=== PATIENT | female | born 1985 | race Two or more races ===

== ENCOUNTER 2017-01-25 02:57 | Observation (INO) | payer SELFPAY ==
[2017-01-25] MEDS ORDERED: NORMAL SALINE 1000 ML 1,000 ML IV ONE ×2 (03:26→22:15)
[2017-01-25] MEDS ORDERED: MAG HYDROX/AL HYDROX/SIMETH SUSP 30 ML UDCUP PO ONE (03:27)
[2017-01-25] MEDS ORDERED: LIDOCAINE 2% VISCOUS SOLN 20 ML UDCUP PO ONE (03:27)
[2017-01-25] MEDS ORDERED: METOCLOPRAMIDE HCL ORAL SOLN 10 MG/10 ML UDCUP PO ONE (03:27)
--- NOTE | 2017-01-25 03:29 | ER Document Report ---
ED General - General Chief Complaint: Chest Pain Stated Complaint: PALPITATIONS Time Seen by Provider: 01/25/17 03:16 Notes: Patient is a 31-year-old female that comes emergency department for chief complaint of palpitations and chest pain. She states the pain starts towards the center of her chest and shoots upwards. Pain went down her left arm. She states she felt like her heart was racing. She states that she felt short of breath with the pain, felt nauseated with the pain, and also states that she felt like she needed to belch to help with the symptoms improved. Symptoms are worse lying down. She states that she awoke to symptoms this morning. She denies injury, vomiting, fever, cough, lower extremity swelling, recent travel or surgery. She takes no daily medications. She states that she used to get this a lot when she was , she has had this many times but today it was worse. TRAVEL OUTSIDE OF THE [place] IN LAST 30 DAYS: No - Related Data Allergies/Adverse Reactions: No Known Allergies Allergy (Verified 01/25/17 03:07) Past Medical History - General Information source: Patient - Social History Smoking Status: Never Smoker Frequency of alcohol use: None Drug Abuse: None Lives with: Family Family History: Reviewed & Not Pertinent - Medical History Medical History: Negative Renal/ Medical History: Denies: Hx Peritoneal Dialysis Surgical Hx: Negative - Immunizations Immunizations up to date: Yes Hx Diphtheria, Pertussis, Tetanus Vaccination: Yes Review of Systems - Review of Systems Constitutional: No symptoms reported EENT: No symptoms reported Cardiovascular: See HPI Respiratory: No symptoms reported Gastrointestinal: See HPI Genitourinary: No symptoms reported Female Genitourinary: No symptoms reported Musculoskeletal: No symptoms reported Skin: No symptoms reported Hematologic/Lymphatic: No symptoms reported Neurological/Psychological: No symptoms reported Physical Exam - Vital signs Vitals: Temp Pulse Resp BP Pulse Ox 97.4 F 86 20 88/56 L 100 01/25/17 03:07 01/25/17 03:07 01/25/17 03:07 01/25/17 03:07 01/25/17 03:07 Interpretation: Normal - General General appearance: Anxious In distress: None - HEENT Head: Normocephalic, Atraumatic Eyes: Normal Conjunctiva: Normal Extraocular movements intact: Yes Eyelashes: Normal Pupils: PERRL Nasal: Normal Mouth/Lips: Normal Mucous membranes: Normal Pharynx: Normal Neck: Normal - Respiratory Respiratory status: No respiratory distress Chest status: Nontender. No: Tender - Patient is not tender with palpation over the anterior chest wall but she does report minimal tenderness in the left pectoral region with moving of the left arm Breath sounds: Normal. No: Decreased air movement, Wheezing Chest palpation: Normal - Cardiovascular Rhythm: Regular Heart sounds: Normal auscultation Murmur: No - Abdominal Inspection: Normal Distension: No distension Bowel sounds: Normal Tenderness: Nontender. No: Carballo's sign, Guarding Organomegaly: No organomegaly - Back Back: Normal, Nontender - Extremities General upper extremity: Normal inspection, Nontender, Normal color, Normal ROM , Normal temperature General lower extremity: Normal inspection, Nontender, Normal color, Normal ROM , Normal temperature, Normal weight bearing. No: Sylvia's sign - Neurological Neuro grossly intact: Yes Cognition: Normal Orientation: AAOx4 Scar Coma Scale Eye Opening: Spontaneous [place] Coma Scale Verbal: Oriented [place] Coma Scale Motor: Obeys Commands [place] Coma Scale Total: 15 Speech: Normal Motor strength normal: LUE, RUE, LLE, RLE Sensory: Normal - Psychological Associated symptoms: Normal affect, Normal mood, Anxious - Patient is mildly nervous looking - Skin Skin Temperature: Warm Skin Moisture: Dry Skin Color: Normal Course - Re-evaluation Re-evalutation: Patient is somewhat hypotensive initially, however she is ambulating around without any difficulty, denies dizziness or lightheadedness. Initially she was complaining of some discomfort in her chest, however after GI cocktail she reports she is much improved, after aspirin she states her symptoms resolved. EKG shows sinus rhythm with no T-wave inversions in consecutive leads or ST segment changes. WI interval is normal. Chest x-ray is unremarkable. Troponin was cycled because of patient's symptoms of pain, radiation, nausea with pain, and reported rapid heart rate, this was actually elevated at 0.048. Mildly low glucose, chemistry and CBC unremarkable otherwise. HCG is negative. Patient denies any drug use or supplements. Suspect possible arrhythmia as the cause, no evidence of pericarditis, low suspicion of endocarditis, no shortness of breath or current symptoms suggesting a pulmonary embolism. She also does not smoke, does not take contraceptives, denies recent travel or surgery, has no lower extremity swelling. No family history of early cardiac disease or pulmonary embolism. Discussed with Dr. Sun. Recommend admission to telemetry for additional evaluation for suspected arrhythmia with elevated troponin. 01/25/17 07:[address] Benjamin, recommends I speak to Cardiology. Discussed with Dr. Gray, discussed HPI, symptoms, exam, workup. He recommends admission, enzymes, echo, stress. Discussed with Dr. Benjamin again. Patient to be admitted to Telemetry obs. Patient remains smiling and well appearing, states agreement with plan. - Vital Signs Vital signs: Temp Pulse Resp BP Pulse Ox 97.4 F 86 29 H 98/86 H 100 01/25/17 03:07 01/25/17 03:07 01/25/17 04:30 01/25/17 04:30 01/25/17 04:30 - Laboratory Result Diagrams: 01/25/17 04:25 01/25/17 04:25 Laboratory results interpreted by me: 01/25/17 04:25 Chloride 109 H Glucose 74 L Direct Bilirubin 0.5 H Alkaline Phosphatase 34 L Total Protein 6.2 L Discharge - Discharge Clinical Impression: Palpitations Chest pain Qualifiers: Chest pain type: unspecified Qualified Code(s): R07.9 - Chest pain, unspecified Condition: Stable Disposition: ADMITTED OBSERVATION Admitting Provider: Hospitalist Unit Admitted: Telemetry
[2017-01-25 05:09] LABS: ABSOLUTE EOSINOPHILS # (AUTO) 0.3 10^3/uL (0.0-0.6); ABSOLUTE LYMPHOCYTES (AUTO) 2.2 10^3/uL (0.5-4.7); ABSOLUTE MONOCYTES (AUTO) 0.5 10^3/uL (0.1-1.4); BASOPHILS % (AUTO) 0.4 % (0-2); EOSINOPHILS % (AUTO) 3.5 % (0-6); HEMOGLOBIN 13.8 g/dL (12.0-15.5); HGB HCT DIFFERENCE 0.4; LYMPHOCYTES % (AUTO) 27.3 % (13-45); MEAN CORPUSCULAR HEMOGLOBIN 30.6 pg (27.0-33.4); MEAN CORPUSCULAR HGB CONC 33.7 g/dL (32.0-36.0); MEAN CORPUSCULAR VOLUME 91 fl (80-97); RED BLOOD COUNT 4.52 10^6/uL (3.72-5.28); RED CELL DISTRIBUTION WIDTH 12.8 % (11.5-14.0); SEGMENTED NEUTROPHILS % (AUTO) 62.8 % (42-78); WHITE BLOOD COUNT 7.9 10^3/uL (4.0-10.5)
--- NOTE | 2017-01-25 05:27 | RADIOLOGY REPORT (SQ) ---
EXAM DESCRIPTION: CHEST PA/LAT COMPLETED DATE/TIME: 01/25/2017 5:10 am REASON FOR STUDY: chest pain COMPARISON: None. EXAM PARAMETERS: NUMBER OF VIEWS: two views TECHNIQUE: Digital Frontal and Lateral radiographic views of the chest acquired. RADIATION DOSE: NA LIMITATIONS: none FINDINGS: LUNGS AND PLEURA: No consolidation, pneumothorax or pleural effusion. MEDIASTINUM AND HILAR STRUCTURES: No masses or contour abnormalities. HEART AND VASCULAR STRUCTURES: Heart normal size. No evidence for failure. BONES: No acute findings. HARDWARE: None in the chest. IMPRESSION: No acute radiographic finding in the chest. TECHNICAL DOCUMENTATION: JOB ID: [id number] [employer]- All Rights Reserved
[2017-01-25 05:32] LABS: ALANINE AMINOTRANSFERASE 20 U/L (9-52); ALBUMIN 3.6 g/dL (3.5-5.0); ALKALINE PHOSPHATASE 34 U/L (38-126); ANION GAP 11 (5-19); ASPARTATE AMINO TRANSFERASE 21 U/L (14-36); BILIRUBIN,DIRECT 0.5 mg/dL (0.0-0.4); BILIRUBIN,TOTAL 0.8 mg/dL (0.2-1.3); BLOOD UREA NITROGEN 18 mg/dL (7-20); CALCIUM 9.3 mg/dL (8.4-10.2); CARBON DIOXIDE 22 mmol/L (22-30); CHLORIDE 109 mmol/L (98-107); CREATININE RESULT 0.72 mg/dL (0.52-1.25); GLUCOSE 74 mg/dL (75-110); LIPASE 137.4 U/L (23-300); POTASSIUM 3.6 mmol/L (3.6-5.0); SODIUM 142.1 mmol/L (137-145); TOTAL PROTEIN 6.2 g/dL (6.3-8.2)
[2017-01-25] MEDS ORDERED: ASPIRIN 81 MG TABLET, CHEWABLE PO ONE (05:55)
[2017-01-25] MEDS ORDERED: ASPIRIN 81 MG TABLET, CHEWABLE ONE (05:58)
[2017-01-25 07:32] LABS: URINE BARBITURATES SCREEN NEGATIVE; URINE METHADONE SCREEN NEGATIVE; URINE OPIATES LOW NEGATIVE; URINE PHENCYCLIDINE SCREEN NEGATIVE
--- NOTE | 2017-01-25 07:49 | EKG REPORT ---
SEVERITY:- NORMAL ECG - SINUS RHYTHM : Confirmed by: Ernesto Randhawa MD 25-Jan-2017 07:48:35
[2017-01-25] MEDS ORDERED: ONDANSETRON HCL INJ/PF 4 MG/2 ML SDV IV PRN (08:37)
[2017-01-25] MEDS ORDERED: ACETAMINOPHEN 325 MG TABLET PO PRN (08:37)
--- NOTE | 2017-01-25 08:56 | PDOC H&P ---
History of Present Illness Admission Date/PCP: 01/25/17 Patient complains of: CP, palpitation History of Present Illness: YUN GALICIA is a 31 year old female, w/ history of palpitation for years since she was 19y.o w/o any work-up presents to hospital due to sustained palpitation, w/ associated CP radiating to L shoulder, dizziness, sweats, SOB and nausea but no vomiting. There was a question of Vtach or SVT by ED but no rhythym strip available for review. Cardiology consulted and recommended stress test and echo. She was then refered for admission. No hx of cardiach problems nor family hx of cardiac disease. Past Medical History Cardiac Medical History: Reports: Other - palpitation Past Surgical History Past Surgical History: Reports: None Social History Information Source: Patient Lives with: Family Smoking Status: Never Smoker Frequency of Alcohol Use: None Hx Recreational Drug Use: No Drugs: None Family History Family History: Thyroid Disfunction Parental Family History Reviewed: Yes Children Family History Reviewed: Yes Sibling(s) Family History Reviewed.: Yes Medication/Allergy Allergies/Adverse Reactions: No Known Allergies Allergy (Verified 01/25/17 03:07) Review of Systems Constitutional: ABSENT: chills, fever(s), headache(s), weight gain, weight loss Eyes: ABSENT: visual disturbances Ears: ABSENT: hearing changes Nose, Mouth, and Throat: ABSENT: mouth pain, sore throat Cardiovascular: PRESENT: chest pain, palpitations. ABSENT: dyspnea on exertion , edema, orthropnea Respiratory: PRESENT: dyspnea. ABSENT: cough, hemoptysis, sputum Gastrointestinal: PRESENT: bloating, nausea. ABSENT: abdominal pain, constipation, diarrhea, hematemesis, hematochezia, melena, vomiting Genitourinary: ABSENT: difficulty urinating, dysuria, hematuria Musculoskeletal: ABSENT: joint swelling Integumentary: ABSENT: pruritus, rash, wounds Neurological: PRESENT: dizziness. ABSENT: abnormal gait, abnormal speech, confusion, focal weakness, syncope Psychiatric: ABSENT: anxiety, depression, homidical ideation, suicidal ideation Endocrine: ABSENT: cold intolerance, heat intolerance, polydipsia, polyuria Hematologic/Lymphatic: ABSENT: easy bleeding, easy bruising Physical Exam Vital Signs: Temp Pulse Resp BP Pulse Ox 97.4 F 86 29 H 98/86 H 100 01/25/17 03:07 01/25/17 03:07 01/25/17 04:30 01/25/17 04:30 01/25/17 04:30 Intake & Output 01/24/17 01/25/17 01/26/17 06:59 06:59 06:59 Weight 61.3 kg General appearance: PRESENT: no acute distress, cooperative, well-developed, well-nourished Head exam: PRESENT: atraumatic, normocephalic Eye exam: PRESENT: conjunctiva pink, EOMI, PERRLA. ABSENT: scleral icterus Ear exam: PRESENT: normal external ear exam Mouth exam: PRESENT: moist, neck supple, tongue midline Neck exam: ABSENT: carotid bruit, JVD, lymphadenopathy, thyromegaly Respiratory exam: PRESENT: clear to auscultation trista. ABSENT: rales, rhonchi, wheezes Cardiovascular exam: PRESENT: RRR. ABSENT: diastolic murmur, rubs, systolic murmur Pulses: PRESENT: normal dorsalis pedis pul Vascular exam: PRESENT: normal capillary refill GI/Abdominal exam: PRESENT: normal bowel sounds, soft. ABSENT: distended, guarding, mass, organolmegaly, rebound, tenderness Rectal exam: PRESENT: deferred Extremities exam: PRESENT: full ROM. ABSENT: calf tenderness, clubbing, pedal edema Neurological exam: PRESENT: alert, awake, oriented to person, oriented to place , oriented to time, oriented to situation Psychiatric exam: PRESENT: appropriate affect, normal mood. ABSENT: homicidal ideation, suicidal ideation Skin exam: PRESENT: dry, intact, warm. ABSENT: cyanosis, rash Results Laboratory Results: 01/25/17 04:25 01/25/17 04:25 01/25/17 01/25/17 01/25/17 04:04 04:04 04:04 WBC Cancelled RBC Cancelled Hgb Cancelled Hct Cancelled MCV Cancelled MCH Cancelled MCHC Cancelled RDW Cancelled Plt Count Cancelled Seg Neutrophils % Cancelled Lymphocytes % Cancelled Monocytes % Cancelled Eosinophils % Cancelled Basophils % Cancelled Absolute Neutrophils Cancelled Absolute Lymphocytes Cancelled Absolute Monocytes Cancelled Absolute Eosinophils Cancelled Absolute Basophils Cancelled Sodium Cancelled Potassium Cancelled Chloride Cancelled Carbon Dioxide Cancelled Anion Gap Cancelled BUN Cancelled Creatinine Cancelled Est GFR ( Amer) Cancelled Est GFR (Non-Af Amer) Cancelled Glucose Cancelled Calcium Cancelled Total Bilirubin Cancelled AST Cancelled ALT Cancelled Alkaline Phosphatase Cancelled Total Protein Cancelled Albumin Cancelled Lipase Cancelled TSH Serum HCG, Qual Cancelled 01/25/17 01/25/17 01/25/17 04:04 04:25 04:25 WBC 7.9 RBC 4.52 Hgb 13.8 Hct 41.0 MCV 91 MCH 30.6 MCHC 33.7 RDW 12.8 Plt Count 198 Seg Neutrophils % 62.8 Lymphocytes % 27.3 Monocytes % 6.0 Eosinophils % 3.5 Basophils % 0.4 Absolute Neutrophils 5.0 Absolute Lymphocytes 2.2 Absolute Monocytes 0.5 Absolute Eosinophils 0.3 Absolute Basophils 0.0 Sodium Potassium Chloride Carbon Dioxide Anion Gap BUN Creatinine Est GFR ( Amer) Est GFR (Non-Af Amer) Glucose Calcium Total Bilirubin AST ALT Alkaline Phosphatase Total Protein Albumin Lipase TSH Cancelled 4.67 Serum HCG, Qual 01/25/17 01/25/17 04:25 04:25 WBC RBC Hgb Hct MCV MCH MCHC RDW Plt Count Seg Neutrophils % Lymphocytes % Monocytes % Eosinophils % Basophils % Absolute Neutrophils Absolute Lymphocytes Absolute Monocytes Absolute Eosinophils Absolute Basophils Sodium 142.1 Potassium 3.6 Chloride 109 H Carbon Dioxide 22 Anion Gap 11 BUN 18 Creatinine 0.72 Est GFR ( Amer) > 60 Est GFR (Non-Af Amer) > 60 Glucose 74 L Calcium 9.3 Total Bilirubin 0.8 AST 21 ALT 20 Alkaline Phosphatase 34 L Total Protein 6.2 L Albumin 3.6 Lipase 137.4 TSH Serum HCG, Qual NEGATIVE 01/25/17 04:25 Troponin I 0.048 Impressions: Chest X-Ray 01/25/17 03:25 IMPRESSION: No acute radiographic finding in the chest. Assessment & Plan - Diagnosis (1) Chest pain Qualifiers: Chest pain type: unspecified Qualified Code(s): R07.9 - Chest pain, unspecified Is this a current diagnosis for this admission?: Yes (2) Palpitations Is this a current diagnosis for this admission?: Yes - Time Time Spent: 30 to 50 Minutes Anticipated discharge: Home Within: within 24 hours - Plan Summary Plan Summary: Serial cardiac enzymes, banking officer, Echocardiogram, stress test, cardiology consult. DVT prophylaxis w/ lovenox. Baby aspirin, and supplemental O2.
[2017-01-25 09:57] LABS: CREATINE KINASE MB 2.01 ng/mL (<4.55)
[2017-01-25 10:08] LABS: TROPONIN I 0.155 ng/mL
[2017-01-25] MEDS: ASPIRIN 81 MG TABLET, ENT COATED PO SCH (11:26)
[2017-01-25] MEDS: DOCUSATE SODIUM 100 MG CAPSULE PO SCH ×2 (11:35→18:33)
[2017-01-25] MEDS: ENOXAPARIN SODIUM INJ 40 MG/0.4 ML DISP.SYRIN SUBCUT SCH (11:35)
[2017-01-25] MEDS: NORMAL SALINE 1000 ML 1,000 ML IV PRN ×2 (11:54→21:37)
--- NOTE | 2017-01-25 13:17 | PDOC CONSULTATION ---
Consultation Consult Date: 01/25/17 Attending physician:: JACK AGUILERA Consult reason:: Chest pain and palpitations History of Present Illness Admission Date/PCP: 01/25/17 08:38 Patient complains of: Chest pain and palpitations History of Present Illness: YUN GALICIA is a 31 year old female, w/ history of palpitation for years since she was 19y.o w/o any work-up presents to hospital due to sustained palpitation, w/ associated CP radiating to L shoulder, dizziness, sweats, SOB and nausea but no vomiting. There was a question of Vtach or SVT by ED but no rhythym strip available for review. Cardiology consulted and recommended stress test and echo. She was then refered for admission. No hx of cardiach problems nor family hx of cardiac disease. This history was reviewed and supplemented. Patient apparently woke up with palpitations. There is no prior history of syncope, near syncope. Patient denied any family history of sudden cardiac or premature CAD. Patient denied any prior history of pulmonary embolism. Patient denied any excess caffeine or illicit drug abuse. Past Medical History Cardiac Medical History: Reports: Other - palpitation Past Surgical History Past Surgical History: Reports: None Social History Information Source: Patient Lives with: Family Smoking Status: Never Smoker Frequency of Alcohol Use: None Hx Recreational Drug Use: No Drugs: None - Advance Directive Resuscitation Status: Full Code Surrogate healthcare decision maker:: Patient's boyfriend is surrogate decision maker at this point. Family History Family History: Thyroid Disfunction Parental Family History Reviewed: Yes Children Family History Reviewed: Yes Sibling(s) Family History Reviewed.: Yes - Negative for premature coronary artery disease or sudden cardiac in the family amongst first degree relatives. Medication/Allergy Home Medications: No Home Medications 01/25/17 Allergies/Adverse Reactions: No Known Allergies Allergy (Verified 01/25/17 03:07) Review of Systems Review of Systems: Please see history of present illness and past medical history as wall. Constitutional: No fever or chills reported. Head : No recent chronic headaches, recent head injury. Eyes: No recent eye pain, diplopia, redness, discharge, acute visual changes. Ears: No recent chronic ear pain, acute hearing loss, ear discharge. Oral cavity: No recent ulcerations, bleeding, oral cavity discomfort. Neck: No recent acute neck pain reported. Hematologic: No recent easy bruising or bleeding or hematologic malignancy reported. Lymphatic: No recent lymphatic malignancy, chronic lymphadenopathy reported yet Cardiovascular system review: See history of present illness. Respiratory system review: No recent chronic cough, hemoptysis, blood clots in the lungs reported. Mild Shortness of breath on exertion. Palpitations as noted above Gastrointestinal system review: Negative for any recent acute or chronic abdominal pain, hematemesis, melena, recent change in bowel habits. Genitourinary system review: No recent acute or chronic hematuria, flank pain, UTI etc. reported. Skin system review: Negative for any recent abnormal bruising, no rash, no pruritus reported. Neurologic: No prior history of strokes, mini strokes, seizure disorder. Psychologic: No history of major psychosis or major depression reported. Musculoskeletal: Minor aches and pains reported. No acute joint swelling reported. Endocrine: No recent polyuria, polydipsia, recent heat or cold intolerance. Physical Exam Vital Signs: Temp Pulse Resp BP Pulse Ox 97.4 F 81 23 H 98/68 L 97 01/25/17 03:07 01/25/17 09:47 01/25/17 12:11 01/25/17 12:11 01/25/17 12:11 Exam: GENERAL: well-nourished and in no acute distress. Alert and oriented x3 HEAD: Atraumatic, normocephalic. EYES: Pupils equal round and reactive to light, extraocular movements intact, sclera anicteric, conjunctiva are normal. ENT: TMs normal, nares patent, oropharynx clear without exudates. Moist mucous membranes. No oral ulcerations or bleeding gums noted NECK: supple without lymphadenopathy. Trachea is central. No cervical or axillary lymphadenopathy noted. Carotids are 2+, JVD WNL LUNGS: Respiration seems nonlabored, no significant accessory muscle action noted. Breath sounds clear to auscultation bilaterally and equal noted. No wheezes rales or rhonchi noted. No significant dullness noted on percussion. CHEST: Palpation of the chest wall shows no significant chest wall tenderness. No other significant abnormalities noted. 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 ABDOMEN: Soft, no significant tenderness appreciated, normoactive bowel sounds. No guarding, no rebound. No rigidity noted . No masses appreciated. EXTREMITIES: Pedal pulses are 1-2+, no calf tenderness noted. No clubbing or cyanosis. Negative pedal edema noted NEUROLOGICAL: Focused neurological exam showed no significant neurologic deficit. Normal speech, no focal weakness appreciated. PSYCH: Normal mood, normal affect. Judgment and insight within normal limits. SKIN: No significant ecchymosis, rash, ulcerations or signs of pruritus noted. MUSCULOSKELETAL EXAM: No significant joint swelling noted. Results Laboratory Results: 01/25/17 01/25/17 08:57 08:57 Creatine Kinase 76 CK-MB (CK-2) 2.01 Troponin I 0.155 EKG Comments: Sinus rhythm, no acute ST-T wave changes noted Impressions: Chest X-Ray 01/25/17 03:25 IMPRESSION: No acute radiographic finding in the chest. Assessment & Plan - Diagnosis (1) Elevated troponin I level Is this a current diagnosis for this admission?: Yes (2) Chest pain Qualifiers: Chest pain type: unspecified Qualified Code(s): R07.9 - Chest pain, unspecified Is this a current diagnosis for this admission?: Yes (3) Palpitations Is this a current diagnosis for this admission?: Yes - Notes Notes: Troponin I elevation: Most likely brought on by severe palpitations. Feel that patient would benefit from admission, 2D echo cardiogram and nuclear stress test. Will empirically start patient on beta-aranza therapy. Chest pain: Patient will benefit from a stress test. This will be scheduled. Palpitations: Patient would benefit from event monitoring as an outpatient. Currently will start patient on beta-aranza therapy. Will recommend CTA of the chest, to rule out pulmonary embolism. Also may look at coronary artery origins. Will also recommend lipid panel. - Time Time Spent: 30 to 50 Minutes - CODE STATUS was discussed, patient remains full code. Surrogate decision-maker unchanged. Multiple medical problems were addressed. More than 50% of the time spent coordinating care, discussing management plans with involved caregivers. Management plans discussed with involved personnels. Medical decision making was of moderate to high complexity , patient's has multiple comorbidities. Medications reviewed and adjusted accordingly: Yes
[2017-01-25 15:28] LABS: CREATINE KINASE MB 1.91 ng/mL (<4.55); TROPONIN I 0.105 ng/mL
[2017-01-25] MEDS ORDERED: ALPRAZOLAM 0.25 MG TABLET PO PRN (16:49)
[2017-01-25] MEDS: METOPROLOL SUCCINATE 25 MG TAB.SR.24H PO SCH (18:32)
--- NOTE | 2017-01-25 18:45 | EKG REPORT ---
SEVERITY:- NORMAL ECG - SINUS RHYTHM : Confirmed by: Ernesto Randhawa MD 25-Jan-2017 18:45:11
--- NOTE | 2017-01-25 19:51 | RADIOLOGY REPORT (SQ) ---
EXAM DESCRIPTION: CTA CHEST COMPLETED DATE/TIME: 01/25/2017 7:36 pm REASON FOR STUDY: Chest Pain COMPARISON: Chest x-ray dated 01/25/2017. TECHNIQUE: CT scan of the chest performed using helical scanning technique with dynamic intravenous contrast injection. Images reviewed with lung, soft tissue and bone windows. Reconstructed coronal and sagittal MPR images reviewed. Additional 3 dimensional post-processing performed to develop Maximal Intensity Projection images (TX P). All images stored on PACS. All CT scanners at this facility use dose modulation, iterative reconstruction, and/or weight based d osing when appropriate to reduce radiation dose to as low as reasonably achievable (ALARA). [facility]: Dose Right [facility]: CareDose [facility]: Dose Right [facility]: Teradose 4D [facility]: Seafarers CV CONTRAST TYPE AND DOSE: contrast/concentration: Isovue 370.00 mg/ml; Total Contrast Delivered: 60.0 ml; Total Saline Delivered: 50.0 ml Contrast bolus optimized for the pulmonary arteries. Not diagnostic for the aorta. RENAL FUNCTION: BUN 18 creatinine 0.72. RADIATION DOSE: Up-to-date CT equipment and radiation dose reduction techniques were employed. CTDIv ol: 13.2 - 14.3 mGy. DLP: 542 mGy-cm. . LIMITATIONS: None. FINDINGS: LUNGS AND PLEURA: No masses, infiltrates, pneumothorax. No pleural effusions, calcificati ons. AORTA AND GREAT VESSELS: No aneurysm. Contrast bolus not optimized for the aorta. HEART: No pericardial effusion. No significant coronary artery calcifications. PULMONARY ARTERIES: No emboli visualized in the main pulmonary arteries or the segmental branches. HILAR AND MEDIASTINAL STRUCTURES: No identified masses or abnormal nodes. HARDWARE: None in the chest. UPPER ABDOMEN: No significant findings. Limited exam. THYROID AND OTHER SOFT TISSUES: No masses. No adenopathy. BONES: No acute or significant finding. 3D MIPS: Confirm above findings. OTHER: No other significant finding. IMPRESSION: NORMAL CTA OF THE CHEST. NO PULMONARY EMBOLI. COMMENT: Quality ID # [id number]: Final reports with documentation of one or more dose reduction techniques (e.g., Automated exposure control, adjustment of the mA and/or kV according to patient size, use of iterative reconstruction technique) TECHNICAL DOCUMENTATION: JOB ID: [id number] [employer]- All Rights Reserved
[2017-01-25 21:35] LABS: CREATINE KINASE MB 1.29 ng/mL (<4.55); TROPONIN I 0.073 ng/mL
[2017-01-26] MEDS ORDERED: NORMAL SALINE 1000 ML 1,000 ML IV ONE (01:45)
[2017-01-26] MEDS ORDERED: LANSOPRAZOLE 30 MG TAB.RAP.DR PO SCH (06:00)
[2017-01-26] MEDS: NORMAL SALINE 1000 ML 1,000 ML IV PRN (07:33)
[2017-01-26] MEDS: METOPROLOL SUCCINATE 25 MG TAB.SR.24H PO SCH (07:33)
[2017-01-26] MEDS: ASPIRIN 81 MG TABLET, ENT COATED PO SCH (11:11)
[2017-01-26] MEDS: DOCUSATE SODIUM 100 MG CAPSULE PO SCH (11:11)
--- NOTE | 2017-01-26 15:20 | DRAGON STRESS TEST REPORT ---
EXERCISE TREADMILL CARDIOLITE STRESS TEST USING SINGLE PHOTON EMMISION COMPUTERIZED TOMOGRAPHIC. DATE OF PROCEDURE: January 26, 2017 INDICATION : Chest pain and palpitations CARDIAC RISK FACTORS: No significant risk factors RESTING EKG: Sinus rhythm WNL STRESS EKG: No significant changes noted with exercise REASON FOR TERMINATION: Fatigue and tiredness. PROCEDURE REPORT: Baseline heart rate 65 beats per minute with blood pressure of 103/60. Patient had no significant complaints. Patient exercised on standard Norbert protocol for 10 minutes and 13 seconds. Exercise stopped because of fatigue and some shortness of breath. Peak heart rate achieved is 151 which is 81% of predicted maximum. Peak blood pressure was 148/60. Double product achieved was 20.0 kcal. Met level achieved is 13.4. No significant EKG changes were noted. CONCLUSIONS: Normal EKG response to exercise treadmill but somewhat of his sub- optimal blood pressure and heart rate response which could be related to beta- aranza therapy. NUCLEAR DATA: At rest the patient was given 10.42 millicuries of technetium 99 sestamibi injected intravenously. As per protocol rest gated SPECT images were obtained. Subsequently the stress dose of 30.9 millicuries of technetium 99 sestamibi was injected intravenously at peak exercise. Patient continued to exercise for 1 additional minute. As per protocol stress gated images were obtained. NUCLEAR INTERPRETATION: Both raw and processed data were used for interpretation. Visual, qualitative, computer-generated quantitative data was used. There was good myocardial uptake of technetium compound. Motion artifact and soft tissue attenuations were noted. Increased visceral uptake was noted. No definitive areas of transient perfusion defect noted. No definitive areas of fixed perfusion defect or scars noted. EKG gated imaging showed LV EF at 56 %, rest and stress gated EF similar visually. T. I D. ratio was 0.94. Lung heart ratio noted to be within normal limits 0.36. No significant extracardiac and abnormal radiotracer activities were noted. RV free wall uptake was noted to be WNL. IMPRESSION: Also refer to comments under nuclear interpretation. Also test results needs to be interpreted in the context of pretest probability. 1. There is no definitive scintigraphic evidence of exercise induced myocardial ischemia, at adequate double product and patient with good exercise tolerance. Somewhat suboptimal heart rate and blood pressure response could be related to young age and beta-aranza therapy. 2. There is no definitive scintigraphic evidence of myocardial infarction/scar. 3. EKG gated imaging shows left ventricular ejection fraction of approximately 56%. 4. Clinical correlation requested as occasionally single vessel disease could be missed. RECOMMENDATIONS: Aggressive risk factor modification, medical therapy. Clinical correlation with echocardiogram derived ejection fraction. Consider cardiology consultation and or follow-up if clinically indicated. I AM AVAILABLE FOR CARDIOLOGY CONSULTATION AND FOLLOWUP IF REQUESTED BY PMD Taylor Gray M.D., DAVIN [employer] Mechanical Engineer twist maker, Board certified in cardiovascular diseases, Nuclear cardiology, Echocardiography Cardiac CT and cardiac MRI Ph. [phone] [facility]
--- NOTE | 2017-01-26 16:16 | PDOC DISCHARGE SUMMARY ---
General - Admit/Disc Date/PCP Admission Date/Primary Care Provider: 01/25/17 08:38 Discharge Date: 01/26/17 - Discharge Diagnosis (1) Chest pain Is this a current diagnosis for this admission?: Yes (2) Palpitations Is this a current diagnosis for this admission?: Yes - Additional Information Resuscitation Status: Full Code Discharge Diet: Regular Discharge Activity: Activity As Tolerated, Balance Activity w/Rest Home Medications: Metoprolol Succinate [Toprol Xl 25 mg Tab.sr] 25 mg PO Q12A #60 tab.sr.24h 01/26 Sertraline HCl [Zoloft 50 mg Tablet] 50 mg PO DAILY #30 tablet 01/26/17 Additional Information: Return to the emergency room if symptoms recur. History of Present Illness Patient complains of: Chest pain and palpitation History of Present Illness: YUN GALICIA is a 31 year old female, w/ history of palpitation for years since she was 19y.o w/o any work-up presents to hospital due to sustained palpitation, w/ associated CP radiating to L shoulder, dizziness, sweats, SOB and nausea but no vomiting. There was a question of Vtach or SVT by ED but no rhythym strip available for review. Cardiology consulted and recommended stress test and echo. She was then refered for admission. No hx of cardiach problems nor family hx of cardiac disease. Hospital Course Hospital Course: The patient was admitted to [facility]. The patient was given intravenous fluid for hypotension. Patient was placed on small lot operator. No reported supraventricular tachycardia or ventricular fibrillation. Patient apparently has had palpitation even at the young age. Cardiology was consulted. Serial troponins were abnormal but trending down eventually. Cardiology reports that troponin elevation may be secondary to the tachycardia as well as hypotension. Patient eventually underwent a stress test that was negative as per cardiology. Recommendations to give Zoloft for anxiety on discharge. Other workups include CT scan of the chest showing no pulmonary embolism. The patient was tried on beta-aranza and she symptomatically improved. The rest of the hospital stays unremarkable. Physical Exam Vital Signs: Temp Pulse Resp BP Pulse Ox 97.5 F 72 20 109/66 100 01/26/17 10:56 01/26/17 10:56 01/26/17 10:56 01/26/17 10:56 01/26/17 10:56 Intake & Output 01/25/17 01/26/17 01/27/17 06:59 06:59 06:59 Intake Total 4558 540 Output Total 0 Balance 4558 540 Weight 66.2 kg General appearance: PRESENT: no acute distress, cooperative Head exam: PRESENT: normocephalic Eye exam: PRESENT: EOMI Mouth exam: PRESENT: moist, neck supple Neck exam: ABSENT: JVD Respiratory exam: PRESENT: clear to auscultation trista Cardiovascular exam: PRESENT: RRR. ABSENT: gallop GI/Abdominal exam: PRESENT: normal bowel sounds, soft. ABSENT: distended, tenderness Extremities exam: ABSENT: pedal edema Neurological exam: PRESENT: alert, awake, oriented to person, oriented to place , oriented to time, oriented to situation Skin exam: PRESENT: dry, warm. ABSENT: cyanosis Results Laboratory Results: 01/25/17 01/25/17 01/25/17 08:57 08:57 14:42 Creatine Kinase 76 76 CK-MB (CK-2) 2.01 Troponin I 0.155 01/25/17 01/25/17 01/25/17 14:42 20:54 20:54 Creatine Kinase 82 CK-MB (CK-2) 1.91 1.29 Troponin I 0.105 0.073 01/26/17 04:42 Creatine Kinase CK-MB (CK-2) Troponin I 0.026 Impressions: Chest X-Ray 01/25/17 03:25 IMPRESSION: No acute radiographic finding in the chest. Chest/Abdomen CTA 01/25/17 18:47 IMPRESSION: NORMAL CTA OF THE CHEST. NO PULMONARY EMBOLI. Qualifiers PATEINT BEING DISCHARGED WITH ANY OF THE FOLLOWING DIAGNOSIS?: No Plan Discharge Plan: Follow-up with primary care physician in 1 week. Time Spent: Less than 30 Minutes
[2017-01-26 16:21] VITALS: BP 98/60
[2017-01-26] MEDS: ENOXAPARIN SODIUM INJ 40 MG/0.4 ML DISP.SYRIN SUBCUT SCH (16:21)
--- NOTE | 2017-01-26 21:25 | PDOC PROGRESS REPORT ---
Subjective Progress Note for:: 01/26/17 Subjective:: Patient seems to be doing better. Patient tolerated beta-blockers. Pt is denying any chest arm or neck discomfort. Patient denying any PND, orthopnea. Patient denied any sustained palpitations, dizziness, syncope, near syncope. Patient denying any fever chills. Patient denying any other significant discomfort. Patient is maintaining sinus rhythm. Patient to undergo nuclear stress test. Patient did undergo a CTA of the chest results of which were discussed. Review of systems: Rest review of systems negative. Medications: Medications have been reviewed. Physical Exam Vital Signs: Temp Pulse Resp BP Pulse Ox 97.5 F 72 20 98/60 L 100 01/26/17 16:19 01/26/17 16:19 01/26/17 16:19 01/26/17 16:19 01/26/17 16:19 Intake & Output 01/25/17 01/26/17 01/27/17 06:59 06:59 06:59 Intake Total 4558 540 Output Total 0 Balance 4558 540 Weight 66.2 kg Exam: GENERAL: well-nourished and in no acute distress. Alert and oriented x3 HEAD: Atraumatic, normocephalic. EYES: Pupils equal round and reactive to light, extraocular movements intact, sclera anicteric, conjunctiva are normal. ENT: TMs normal, nares patent, oropharynx clear without exudates. Moist mucous membranes. No oral ulcerations or bleeding gums noted NECK: supple without lymphadenopathy. Trachea is central. No cervical or axillary lymphadenopathy noted. Carotids are 2+, JVD WNL LUNGS: Respiration seems nonlabored, no significant accessory muscle action noted. Breath sounds clear to auscultation bilaterally and equal noted. No wheezes rales or rhonchi noted. No significant dullness noted on percussion. CHEST: Palpation of the chest wall shows no significant chest wall tenderness. No other significant abnormalities noted. HEART: [place] [employer]ADER, No PSH, 1/6 ZENON aortic area, 1/6 [place] systolic murmur mitral area, no rubs, no gallops. ABDOMEN: Soft, no significant tenderness appreciated, normoactive bowel sounds. No guarding, no rebound. No rigidity noted . No masses appreciated. EXTREMITIES: Pedal pulses are 1-2+, no calf tenderness noted. No clubbing or cyanosis. Negative pedal edema noted NEUROLOGICAL: Focused neurological exam showed no significant neurologic deficit. Normal speech, no focal weakness appreciated. PSYCH: Normal mood, normal affect. Judgment and insight within normal limits. SKIN: No significant ecchymosis, rash, ulcerations or signs of pruritus noted. MUSCULOSKELETAL EXAM: No significant joint swelling noted. Results Laboratory Results: 01/25/17 01/25/17 01/25/17 08:57 08:57 14:42 Creatine Kinase 76 76 CK-MB (CK-2) 2.01 Troponin I 0.155 01/25/17 01/25/17 01/25/17 14:42 20:54 20:54 Creatine Kinase 82 CK-MB (CK-2) 1.91 1.29 Troponin I 0.105 0.073 01/26/17 04:42 Creatine Kinase CK-MB (CK-2) Troponin I 0.026 Impressions: Chest X-Ray 01/25/17 03:25 IMPRESSION: No acute radiographic finding in the chest. Chest/Abdomen CTA 01/25/17 18:47 IMPRESSION: NORMAL CTA OF THE CHEST. NO PULMONARY EMBOLI. Assessment & Plan - Diagnosis (1) Elevated troponin I level Is this a current diagnosis for this admission?: Yes (2) Chest pain Qualifiers: Chest pain type: unspecified Qualified Code(s): R07.9 - Chest pain, unspecified Is this a current diagnosis for this admission?: Yes (3) Palpitations Is this a current diagnosis for this admission?: Yes - Notes Notes: Elevated troponin I: Exact etiology not clear but doubt myocardial infarction even though patient had chest pain. Believe that this was brought on by severe tachycardia which unfortunately was not captured. Patient tolerating beta- blockers. CTA of the chest showed no evidence of pulmonary embolism or other cause of chest pain. Coronary origins were identified and were noted to be normal. Chest pain: Resolved. Nuclear stress test results were discussed. Patient was noted to have good exercise tolerance. Although heart rate response and blood pressure response but somewhat suboptimal but do not feel patient has CAD. Palpitations: Patient has a history of chronic palpitations. So far no syncope or near syncope. Patient was offered to follow-up for event monitoring but due to lack of insurance she is not interested in pursuing this option. 2D echo results were also discussed. Patient was noted to be structurally normal heart. - Time Time with patient: Greater than 35 minutes - Patient was seen multiple times. Total time exceeds 40 minutes. In the morning nuclear stress test procedure, risks benefits, alternatives were discussed. Patient seen during the stress test. Patient also seen after stress test when results were discussed with the patient in detail. Patient's questions were answered. Nuclear stress test results were discussed with the patient. Patient was informed that no definitive evidence of pharmacologic stress-induced ischemia noted. No definite fixed defects were noted. Patient informed that occasionally significant single vessel disease or balanced ischemia could be missed. However based on the current study results, would recommend aggressive risk factor modification and medical therapy. It may also be worthwhile to consider evaluation or empiric management of other causes of chest pain. Should no other cause be found and if persistent in having chest pain, then cardiac catheterization should be considered. Right now, recommendations are for aggressive risk factor modification and medical management. 2D echo results discussed. CT angiogram of the chest results discussed. Approximately 45 minutes total time spent throughout the day. Patient was seen multiple times. Medications reviewed and adjusted accordingly: Yes
--- NOTE | 2017-02-02 09:53 | XCELERA REPORT ---
[address] [address] Transthoracic Echocardiogram Report Name: YUN GALICIA Age: 31 yrs Gender: Female : 1985 Patient Status: Inpatient Patient Location: [address] [place] [address] Study Date: 01/25/2017 02:15 PM Height: 65 in Weight: 135 lb BSA: 1.7 m2 Procedure: A complete two-dimensional transthoracic echocardiogram was performed (2D, M-mode, spectral and color flow Doppler). The study was technically good with many images being of high quality. Reason For Study: abn troponin, tachycardia Ordering Physician: TAYLOR CHA Performed By: Jay White Interpretation Summary The left ventricle has normal cavity size with globally normal systolic function. Estimated left ventricular ejection fraction is 65%. Doppler measurements suggest normal left ventricular diastolic function There is normal left ventricular wall thickness. The left ventricle is grossly normal size. No regional wall motion abnormalities noted. The right ventricular systolic function is normal. The left atrial size is normal. The right atrium is normal in size There is no mitral valve stenosis. There is a trace amount of mitral regurgitation There is no aortic valve stenosis No aortic regurgitation is present. There is a trace or physiologic amount of tricuspid regurgitation Right ventricular systolic pressure is at the upper limits of normal The aortic root is not well visualized but is probably normal size. The inferior vena cava appeared dilated and decreased < 50% with respiration (RAP 15-20 mmHg) There is no pericardial effusion. MMode/2D Measurements & Calculations RVDd: 2.6 cm LVIDd: 4.8 cm FS: 36.8 % Ao root diam: 2.7 cm IVSd: 0.56 cm LVIDs: 3.1 cm EDV(Teich): 109.9 ml LVPWd: 0.66 cm ESV(Teich): 36.9 ml Ao root area: 5.5 cm2 EF(Teich): 66.5 % LA dimension: 3.0 cm Doppler Measurements & Calculations MV E max refugio: MV P1/2t max refugio: Ao V2 max: LV V1 max P.2 cm/sec 101.7 cm/sec 120.8 cm/sec 2.6 mmHg MV A max rfeugio: MV P1/2t: 50.8 msec Ao max PG: LV V1 max: 60.2 cm/sec 5.8 mmHg 80.9 cm/sec MV E/A: 1.7 MVA(P1/2t): 4.3 cm2 MV dec slope: 586.5 cm/sec2 PA V2 max: TR max refugio: RAP systole: 64.7 cm/sec 204.4 cm/sec 10.0 mmHg PA max P.7 mmHgTR max P.7 mmHg RVSP(TR): 26.7 mmHg Left Ventricle The left ventricle is grossly normal size. There is normal left ventricular wall thickness. The left ventricle has normal cavity size with globally normal systolic function. Estimated left ventricular ejection fraction is 55%. Doppler measurements suggest normal left ventricular diastolic function. No regional wall motion abnormalities noted. Right Ventricle The right ventricle is grossly normal size. There is normal right ventricular wall thickness. The right ventricular systolic function is normal. Atria The right atrium is normal in size. The left atrial size is normal. The interatrial septum is intact with no evidence for an atrial septal defect. Mitral Valve The mitral valve is grossly normal. There is no mitral valve stenosis. There is a trace amount of mitral regurgitation. Aortic Valve The aortic valve is grossly normal. There is no aortic valve stenosis. No aortic regurgitation is present. Tricuspid Valve The tricuspid valve is not well visualized, but is grossly normal. There is no tricuspid stenosis. There is a trace or physiologic amount of tricuspid regurgitation. Right ventricular systolic pressure is at the upper limits of normal. Pulmonic Valve The pulmonic valve is not well visualized. Great Vessels The aortic root is not well visualized but is probably normal size. The inferior vena cava appeared dilated and decreased < 50% with respiration (RAP 15-20 mmHg). Effusions There is no pericardial effusion. : TAYLOR CHA > Taylor Cha
== END 2017-01-26 16:40 | disposition home or self-care (01) ==
LOC: ER 02:57 → EH 08:38 → UNDOADMOB 09:01 → 3S 12:01 → EH 12:05 → 3S 13:34
DX: R07.9 Chest pain, unspecified (principal); R00.2 Palpitations; R74.8 Abnormal levels of other serum enzymes; I95.9 Hypotension, unspecified; R42 Dizziness and giddiness; R61 Generalized hyperhidrosis; R06.02 Shortness of breath; R11.0 Nausea; R14.0 Abdominal distension (gaseous)
CPT/HCPCS: 93005 ×2; 99285; 36415 ×2; 82553; 82550; 83690; 83735; 84443; 84703; 85025; 80053; 84484 ×2; 80307; 93306; 93017; 71020; 78452; 71275; 93010; G0378; A9500; J3490 ×2; J1650; J7030 ×2; Q9969

== ENCOUNTER 2017-03-13 15:39 | Emergency (ER) | payer OTHER ==
--- NOTE | 2017-03-13 17:10 | ER Document Report ---
ED Medical Screen (RME) - General Chief Complaint: Leg Pain Stated Complaint: LEG PAIN,BRUISING Time Seen by Provider: 03/13/17 17:09 Notes: Patient states that she started taking metoprolol approximate 1 month ago. She states that she was prescribed this by a livestock trucker for an arrhythmia. She states after about 2 weeks she began to develop bruises on her legs. She stopped the metoprolol 2 weeks ago but states she continues to get bruises. She denies any other significant symptoms. TRAVEL OUTSIDE OF THE [place] IN LAST 30 DAYS: No - Related Data Allergies/Adverse Reactions: No Known Allergies Allergy (Verified 03/13/17 15:47) Past Medical History Renal/ Medical History: Denies: Hx Peritoneal Dialysis - Immunizations Immunizations up to date: Yes Hx Diphtheria, Pertussis, Tetanus Vaccination: Yes Physical Exam - Vital signs Vitals: Temp Pulse Resp BP Pulse Ox 97.9 F 68 20 115/65 98 03/13/17 15:44 03/13/17 15:44 03/13/17 15:44 03/13/17 15:44 03/13/17 15:44 Course - Vital Signs Vital signs: Temp Pulse Resp BP Pulse Ox 97.9 F 68 20 115/65 98 03/13/17 15:44 03/13/17 15:44 03/13/17 15:44 03/13/17 15:44 03/13/17 15:44
[2017-03-13 17:53] LABS: ABSOLUTE EOSINOPHILS # (AUTO) 0.3 10^3/uL (0.0-0.6); ABSOLUTE MONOCYTES (AUTO) 0.4 10^3/uL (0.1-1.4); ABSOLUTE NEUT (AUTO) 4.7 10^3/uL (1.7-8.2); BASOPHILS % (AUTO) 0.5 % (0-2); HEMOGLOBIN 13.8 g/dL (12.0-15.5); HGB HCT DIFFERENCE 2.4; LYMPHOCYTES % (AUTO) 26.7 % (13-45); MEAN CORPUSCULAR HEMOGLOBIN 31.6 pg (27.0-33.4); MEAN CORPUSCULAR HGB CONC 35.2 g/dL (32.0-36.0); MEAN CORPUSCULAR VOLUME 90 fl (80-97); MONOCYTES % (AUTO) 5.6 % (3-13); RED BLOOD COUNT 4.36 10^6/uL (3.72-5.28); RED CELL DISTRIBUTION WIDTH 13.3 % (11.5-14.0); SEGMENTED NEUTROPHILS % (AUTO) 63.2 % (42-78); WHITE BLOOD COUNT 7.5 10^3/uL (4.0-10.5)
[2017-03-13 17:59] LABS: APPEARANCE,URINE CLEAR; BILIRUBIN,URINE NEGATIVE (NEGATIVE); GLUCOSE, URINE NEGATIVE (NEGATIVE); KETONES,URINE NEGATIVE (NEGATIVE); LEUKOCYTE ESTERASE,URINE MODERATE (NEGATIVE); NITRITE,URINE NEGATIVE (NEGATIVE); PROTEIN,URINE NEGATIVE (NEGATIVE); URINE SPECIFIC GRAVITY 1.009; UROBILINOGEN,URINE NEGATIVE mg/dL (<2.0)
[2017-03-13 18:11] LABS: ALANINE AMINOTRANSFERASE 34 U/L (9-52); ALBUMIN 4.7 g/dL (3.5-5.0); ALKALINE PHOSPHATASE 42 U/L (38-126); ANION GAP 13 (5-19); ASPARTATE AMINO TRANSFERASE 24 U/L (14-36); BILIRUBIN,DIRECT 0.3 mg/dL (0.0-0.4); BILIRUBIN,TOTAL 0.5 mg/dL (0.2-1.3); BLOOD UREA NITROGEN 15 mg/dL (7-20); CALCIUM 9.7 mg/dL (8.4-10.2); CARBON DIOXIDE 26 mmol/L (22-30); CHLORIDE 103 mmol/L (98-107); CREATININE RESULT 0.74 mg/dL (0.52-1.25); GLUCOSE 90 mg/dL (75-110); POTASSIUM 3.9 mmol/L (3.6-5.0); SODIUM 141.6 mmol/L (137-145); TOTAL PROTEIN 7.6 g/dL (6.3-8.2)
--- NOTE | 2017-03-13 19:45 | ER Document Report ---
ED General - General Chief Complaint: Leg Pain Stated Complaint: LEG PAIN,BRUISING Time Seen by Provider: 03/13/17 17:09 Mode of Arrival: Ambulatory Information source: Patient Notes: 31 yr old female presents with complaints of bruising of the legs of 1 month duration since she started on zoloft and metoprolol. Pt notes that the metoprolol she stopped recently after talking to dr fisher. Pt denies any vaginal bleeding, trauma but does note her gums always bleed. TRAVEL OUTSIDE OF THE [place] IN LAST 30 DAYS: No - HPI Onset: Other Onset/Duration: Persistent Quality of pain: No pain Severity: None Pain Level: Denies Associated symptoms: None Exacerbated by: Denies Relieved by: Denies Similar symptoms previously: Yes Recently seen / treated by doctor: Yes - Related Data Allergies/Adverse Reactions: No Known Allergies Allergy (Verified 03/13/17 15:47) Past Medical History - Social History Smoking Status: Unknown if Ever Smoked Cigarette use (# per day): No Chew tobacco use (# tins/day): No Smoking Education Provided: No Family History: Thyroid Disfunction Renal/ Medical History: Denies: Hx Peritoneal Dialysis - Immunizations Immunizations up to date: Yes Hx Diphtheria, Pertussis, Tetanus Vaccination: Yes Review of Systems - Review of Systems Notes: REVIEW OF SYSTEMS: CONSTITUTIONAL : Denies fever, chills, or sweats. Denies recent illness. EENT: Denies eye, ear, throat, or mouth pain or symptoms. Denies nasal or sinus congestion or discharge. Denies throat, tongue, or mouth swelling or difficulty swallowing. CARDIOVASCULAR: Denies chest pain. Denies palpitations or racing or irregular heart beat. Denies ankle edema. RESPIRATORY: Denies cough, cold, or chest congestion. Denies shortness of breath, difficulty breathing, or wheezing. GASTROINTESTINAL: Denies abdominal pain or distention. Denies nausea, vomiting , or diarrhea. Denies blood in vomitus, stools, or per rectum. Denies black, tarry stools. Denies constipation. GENITOURINARY: Denies difficulty urinating, painful urination, burning, frequency, blood in urine, or discharge. FEMALE GENITOURINARY: Denies vaginal bleeding, heavy or abnormal periods, irregular periods. Denies vaginal discharge or odor. MUSCULOSKELETAL: Denies back or neck pain or stiffness. Denies joint pain or swelling. SKIN: Denies rash, lesions or sores. HEMATOLOGIC : Admits to easy bruising LYMPHATIC: Denies swollen, enlarged glands. NEUROLOGICAL: Denies confusion or altered mental status. Denies passing out or loss of consciousness. Denies dizziness or lightheadedness. Denies headache. Denies weakness or paralysis or loss of use of either side. Denies problems with gait or speech. Denies sensory loss, numbness, or tingling. Denies seizures. PSYCHIATRIC: Denies anxiety or stress. Denies depression, suicidal ideation, or homicidal ideation. ALL OTHER SYSTEMS REVIEWED AND NEGATIVE. PHYSICAL EXAMINATION: GENERAL: Well-appearing, well-nourished and in no acute distress. HEAD: Atraumatic, normocephalic. EYES: Pupils equal round and reactive to light, extraocular movements intact, conjunctiva are normal. ENT: Nares patent, oropharynx clear without exudates. Moist mucous membranes. NECK: Normal range of motion, supple without lymphadenopathy LUNGS: Breath sounds clear to auscultation bilaterally and equal. No wheezes rales or rhonchi. HEART: Regular rate and rhythm without murmurs ABDOMEN: Soft, nontender, nondistended abdomen. No guarding, no rebound. No masses appreciated. Female : deferred Musculoskeletal: Normal range of motion, no pitting or edema. No cyanosis. NEUROLOGICAL: Cranial nerves grossly intact. Normal speech, normal gait. Normal sensory, motor exams PSYCH: Normal mood, normal affect. SKIN: bruising noted on bilateral legs Dictation was performed using eventblimp voice recognition software Physical Exam - Vital signs Vitals: Temp Pulse Resp BP Pulse Ox 97.9 F 68 20 115/65 98 03/13/17 15:44 03/13/17 15:44 03/13/17 15:44 03/13/17 15:44 03/13/17 15:44 Course - Re-evaluation Re-evalutation: 03/13/17 21:10 No active bleeding is noted, PT is normal, platelets are normal, the Zoloft could be causing this but also possible patient has von Willebrand's disease since her gums bleed she brushes her teeth. I will order these tests and have her follow-up with [facility] otherwise she is stable. I will restart her metoprolol After performing a Medical Screening Examination, I estimate there is LOW risk for INTRACRANIAL HEMORRHAGE, ISCHEMIC CVA, MALIGNANT DYSRHYTHMIA, ACUTE CORONARY SYNDROME, MENINGITIS, PULMONARY EMBOLISM, or SEPSIS thus I consider the discharge disposition reasonable. I have reevaluated this patient multiple times and no significant life threatening changes are noted. The patient and I have discussed the diagnosis and risks, and we agree with discharging home with close follow-up with the understanding that symptoms and presentations can change. We also discussed returning to the Emergency Department immediately if new or worsening symptoms occur. We have discussed the symptoms which are most concerning (e.g., changing or worsening pain, weakness, vomiting, fever) that necessitate immediate return. - Vital Signs Vital signs: Temp Pulse Resp BP Pulse Ox 97.8 F 68 16 114/59 L 100 03/13/17 20:06 03/13/17 20:06 03/13/17 20:06 03/13/17 20:06 03/13/17 20:06 - Laboratory Result Diagrams: 03/13/17 17:25 03/13/17 17:25 Laboratory results interpreted by me: 03/13/17 17:29 Ur Leukocyte Esterase MODERATE H Discharge - Discharge Clinical Impression: Easy bruising Condition: Stable Disposition: HOME, SELF-CARE Additional Instructions: Please hold the Zoloft at this time you may continue metoprolol Referrals: ISELA MACKAY MD [ACTIVE STAFF] - Follow up as needed CELESTE GUPTA MD [ACTIVE STAFF] - 03/14/17
[2017-03-13 20:07] VITALS: BP 114/59
[2017-03-13 20:32] LABS: PROTHROMBIN TIME 14.1 SEC (11.4-15.4)
[2017-03-15 14:40] LABS: FACTOR VIII ACTIVITY 38 % (57-163)
[2017-03-16 07:21] LABS: INTERPRETATION (COAG STUDIES) Note (.); VON WILLEBRAND FACTOR ACTIVITY 24 % (50-200); VON WILLEBRAND FACTOR ANTIGEN 41 % (50-200)
== END 2017-03-13 20:06 | disposition home or self-care (01) ==
LOC: ER 15:39
DX: S80.12XA Contusion of left lower leg, initial encounter (principal); S80.11XA Contusion of right lower leg, initial encounter; X58.XXXA Exposure to other specified factors, initial encounter; K06.8 Other specified disorders of gingiva and edentulous alveolar ridge; Z79.899 Other long term (current) drug therapy
CPT/HCPCS: 36415; 80053; 81001; 81025; 85025; 85240; 85245; 85246; 85610; 99283

== ENCOUNTER 2017-05-28 18:49 | Emergency (ER) | payer OTHER ==
[2017-05-28] MEDS ORDERED: NORMAL SALINE 1000 ML 1,000 ML IV ONE ×2 (20:05→20:56)
[2017-05-28] MEDS ORDERED: ONDANSETRON HCL INJ/PF 4 MG/2 ML SDV IV ONE (20:05)
--- NOTE | 2017-05-28 20:07 | ER Document Report ---
ED Medical Screen (RME) - General Chief Complaint: Nausea/Vomiting Stated Complaint: VOMITING Time Seen by Provider: 05/28/17 20:05 Notes: Patient states that. TRAVEL OUTSIDE OF THE [place] IN LAST 30 DAYS: No - Related Data Allergies/Adverse Reactions: No Known Allergies Allergy (Verified 03/13/17 15:47) Past Medical History - Social History Chew tobacco use (# tins/day): No Frequency of alcohol use: None Drug Abuse: None Renal/ Medical History: Denies: Hx Peritoneal Dialysis - Immunizations Immunizations up to date: Yes Hx Diphtheria, Pertussis, Tetanus Vaccination: Yes Physical Exam - Vital signs Vitals: Temp Pulse Resp BP Pulse Ox 98.8 F 125 H 18 92/64 L 100 05/28/17 18:59 05/28/17 18:59 05/28/17 18:59 05/28/17 18:59 05/28/17 18:59 Course - Vital Signs Vital signs: Temp Pulse Resp BP Pulse Ox 98.8 F 125 H 18 92/64 L 100 05/28/17 18:59 05/28/17 18:59 05/28/17 18:59 05/28/17 18:59 05/28/17 18:59
[2017-05-28] MEDS ORDERED: MORPHINE SULFATE 10 MG/ML INJ IV PRN (20:55)
--- NOTE | 2017-05-28 20:58 | ER Document Report ---
ED General - General Chief Complaint: Nausea/Vomiting Stated Complaint: VOMITING Time Seen by Provider: 05/28/17 20:05 Notes: Patient is a 31-year-old female with past medical history of a dysrhythmia in the past who presents with nausea, vomiting and diarrhea. Patient notes that the symptoms have been ongoing for the past 12 hours. She states that the vomiting has been persistent and has prevented her from tolerating any form of oral intake. She notes that she had several loose bowel movements earlier today but that has since discontinued. She notes after multiple episodes of vomiting she has had a dull, constant, throbbing pain in her upper abdomen and mid back. Moving, vomiting or coughing worsens the pain. Nothing improves the pain. She has not had a fever, headache, neck pain, shortness of breath, dysuria, vaginal bleeding or discharge. She has not seen her primary doctor regarding today's concerns. TRAVEL OUTSIDE OF THE [place] IN LAST 30 DAYS: No - Related Data Allergies/Adverse Reactions: No Known Allergies Allergy (Verified 03/13/17 15:47) Past Medical History - General Information source: Patient - Social History Smoking Status: Never Smoker Chew tobacco use (# tins/day): No Frequency of alcohol use: None Drug Abuse: None Lives with: Spouse/Significant other Family History: Reviewed & Not Pertinent, Thyroid Disfunction Patient has suicidal ideation: No Patient has homicidal ideation: No Renal/ Medical History: Denies: Hx Peritoneal Dialysis - Immunizations Immunizations up to date: Yes Hx Diphtheria, Pertussis, Tetanus Vaccination: Yes Review of Systems - Review of Systems Notes: Constitutional: Negative for fever. HENT: Negative for sore throat. Eyes: Negative for visual changes. Cardiovascular: Negative for chest pain. Respiratory: Negative for shortness of breath. Gastrointestinal: Positive for abdominal pain, vomiting and diarrhea Genitourinary: Negative for dysuria. Musculoskeletal: Negative for back pain. Skin: Negative for rash. Neurological: Negative for headaches, weakness or numbness. 10 point ROS negative except as marked above and in HPI. Physical Exam - Vital signs Vitals: Temp Pulse Resp BP Pulse Ox 98.8 F 125 H 18 92/64 L 100 05/28/17 18:59 05/28/17 18:59 05/28/17 18:59 05/28/17 18:59 05/28/17 18:59 Interpretation: Hypotensive, Tachycardic Notes: PHYSICAL EXAMINATION: GENERAL: Appears tired but in no acute distress. HEAD: Atraumatic, normocephalic. EYES: Pupils equal round and reactive to light, extraocular movements intact, sclera anicteric, conjunctiva are normal. ENT: nares patent, oropharynx clear without exudates. Dry mucous membranes. NECK: Normal range of motion, supple without lymphadenopathy LUNGS: Breath sounds clear to auscultation bilaterally and equal. No wheezes rales or rhonchi. HEART: Regular tachycardia without murmurs ABDOMEN: Soft, mild epigastric abdominal tenderness on palpation but no otherwise localized tenderness, normoactive bowel sounds. No guarding, no rebound. No masses appreciated. EXTREMITIES: Normal range of motion, no pitting or edema. No cyanosis. NEUROLOGICAL: No focal neurological deficits. Moves all extremities spontaneously and on command. PSYCH: Normal mood, normal affect. SKIN: Warm, Dry, normal turgor, no rashes or lesions noted. Course - Re-evaluation Re-evalutation: 05/28/17 20:56 Presentation of an overall well-appearing patient in no acute distress with complaints of nausea, vomiting, diarrhea. Patient has some mild epigastric abdominal pain in addition to the symptoms which she states developed after she had multiple episodes of vomiting. This is consistent with likely viral gastroenteritis. Patient has no abdominal tenderness on exam and specifically no tenderness in the RLQ, LLQ, RUQ. Patient initially was tachycardic and hypotensive and appears severely dehydrated on examination. Her vitals rapidly improved after she was able to lie down in a bed and IV fluids were initiated. After IV ondansetron and IV fluids she was able to tolerate oral intake here in the emergency department. Low clinical suspicion for any acute life-threatening etiology based on exam and history including acute cholecystitis, SBO, appendicitis, nephrolithiasis, or pylonephritis. CMP without evidence of acute hepatitis or significant dehydration. Lipase is normal, she is not . At this time will discharge with return precautions and follow-up recommendations. Verbal discharge instructions given a the bedside and opportunity for questions given. Medication warnings reviewed. Patient is in agreement with this plan and has verbalized understanding of return precautions and the need for primary care follow-up in the next 24-72 hours. - Vital Signs Vital signs: Temp Pulse Resp BP Pulse Ox 98.8 F 125 H 20 103/60 100 05/28/17 18:59 05/28/17 18:59 05/28/17 23:35 05/28/17 23:35 05/28/17 23:35 - Laboratory Result Diagrams: 05/28/17 20:55 05/28/17 20:55 Laboratory results interpreted by me: 05/28/17 05/28/17 20:55 22:30 WBC 11.6 H Seg Neuts % (Manual) 94 H Band Neutrophils % 1 L Lymphocytes % (Manual) 4 L Monocytes % (Manual) 1 L Abs Neuts (Manual) 11.0 H Urine Ketones 80 H Ur Leukocyte Esterase TRACE H Urine Ascorbic Acid 40 H Discharge - Discharge Clinical Impression: Dehydration, Nausea vomiting and diarrhea Condition: Good Disposition: HOME, SELF-CARE Additional Instructions: Your symptoms are likely due to a viral illness and should resolve in the next several days. You can take [id number] loperamide also known as Imodium as needed for diarrhea per box instructions. Continue to stay hydrated with plenty of solution such as Gatorade or Pedialyte. You are being prescribed Zofran to take as needed for nausea and vomiting. Please return if you develop severe abdominal pain, pass out, become unable to tolerate any oral fluids for 12 more hours, or any other symptoms that are concerning to you.
[2017-05-28 21:20] LABS: HEMATOCRIT 43.7 % (36.0-47.0); HEMOGLOBIN 14.8 g/dL (12.0-15.5); MEAN CORPUSCULAR HEMOGLOBIN 30.5 pg (27.0-33.4); MEAN CORPUSCULAR HGB CONC 33.9 g/dL (32.0-36.0); MEAN CORPUSCULAR VOLUME 90 fl (80-97); PLATELET COUNT 226 10^3/uL (150-450); RED BLOOD COUNT 4.85 10^6/uL (3.72-5.28); RED CELL DISTRIBUTION WIDTH 12.6 % (11.5-14.0); WHITE BLOOD COUNT 11.6 10^3/uL (4.0-10.5)
[2017-05-28 21:23] LABS: ALANINE AMINOTRANSFERASE 27 U/L (9-52); ALBUMIN 4.5 g/dL (3.5-5.0); ALKALINE PHOSPHATASE 46 U/L (38-126); ANION GAP 12 (5-19); ASPARTATE AMINO TRANSFERASE 21 U/L (14-36); BILIRUBIN,DIRECT 0.2 mg/dL (0.0-0.4); BILIRUBIN,TOTAL 0.9 mg/dL (0.2-1.3); BLOOD UREA NITROGEN 16 mg/dL (7-20); CALCIUM 9.3 mg/dL (8.4-10.2); CARBON DIOXIDE 24 mmol/L (22-30); CHLORIDE 103 mmol/L (98-107); GLUCOSE 97 mg/dL (75-110); SODIUM 139.4 mmol/L (137-145); TOTAL PROTEIN 7.4 g/dL (6.3-8.2)
[2017-05-28 21:43] LABS: ABSOLUTE LYMPHOCYTES# (MANUAL) 0.5 10^3/uL (0.5-4.7); ABSOLUTE MONOCYTES # (MANUAL) 0.1 10^3/uL (0.1-1.4); BAND NEUTROPHILS % (MANUAL) 1 % (3-5); BASOPHILS % (MANUAL) 0 % (0-2); EOSINOPHILS % (MANUAL) 0 % (0-6); LYMPHOCYTES % (MANUAL) 4 % (13-45); MONOCYTES % (MANUAL) 1 % (3-13); SEGMENTED NEUTROPHILS % (MAN) 94 % (42-78); TOTAL CELLS COUNTED 100
[2017-05-28 21:46] LABS: PLATELET COMMENT ADEQUATE; RBC MORPHOLOGY COMMENT NORMO-CYTIC/CHROMIC
[2017-05-28 22:42] LABS: APPEARANCE,URINE SLIGHTLY-CLOUDY; BILIRUBIN,URINE NEGATIVE (NEGATIVE); COLOR,URINE YELLOW; GLUCOSE, URINE NEGATIVE (NEGATIVE); KETONES,URINE 80 mg/dL (NEGATIVE); LEUKOCYTE ESTERASE,URINE TRACE (NEGATIVE); NITRITE,URINE NEGATIVE (NEGATIVE); PROTEIN,URINE NEGATIVE (NEGATIVE); URINE SPECIFIC GRAVITY 1.029; UROBILINOGEN,URINE NEGATIVE mg/dL (<2.0)
[2017-05-28] MEDS ORDERED: ONDANSETRON ODT 4 MG TAB (6 TAB/ER DISP) PO PRN (22:51)
[2017-05-28 23:40] VITALS: BP 103/60
== END 2017-05-28 23:47 | disposition home or self-care (01) ==
LOC: ER 18:49
DX: E86.0 Dehydration (principal); R11.2 Nausea with vomiting, unspecified; R19.7 Diarrhea, unspecified; R10.13 Epigastric pain
CPT/HCPCS: 99283; 96361; 96374; 96375; 36415; 87086; 84703; 85025; 80053; 81001; J2270; J2405; J7030

== ENCOUNTER 2017-08-04 09:40 | Emergency (ER) | payer OTHER ==
[2017-08-04] MEDS ORDERED: ONDANSETRON 4 MG TAB.RAPDIS PO ONE (10:15)
[2017-08-04] MEDS ORDERED: ONDANSETRON HCL INJ/PF 4 MG/2 ML SDV IV ONE (10:16)
[2017-08-04] MEDS ORDERED: NORMAL SALINE 1000 ML 1,000 ML IV ONE (10:16)
--- NOTE | 2017-08-04 10:17 | ER Document Report ---
ED Medical Screen (RME) - General Chief Complaint: Abdominal Pain Stated Complaint: VOMITING Time Seen by Provider: 08/04/17 10:14 Notes: Patient presents with multiple bouts of nonbloody nonbilious vomiting and nonbloody diarrhea that started late last night. She states that she ate a [employer] and after that is when the symptoms started. Her abdominal pain is diffuse and crampy in nature. I have greeted and performed a rapid initial assessment of this patient. A comprehensive ED assessment and evaluation of the patient, analysis of test results and completion of the medical decision making process will be conducted by additional ED providers. PHYSICAL EXAMINATION: GENERAL: Well-appearing, well-nourished and in no acute distress. HEAD: Atraumatic, normocephalic. EYES: Pupils equal round extraocular movements intact, conjunctiva are normal. ENT: Nares patent NECK: Normal range of motion LUNGS: No respiratory distress ABD: Mild TTP, diffuse, normal BS Musculoskeletal: Normal range of motion NEUROLOGICAL: Normal speech, normal gait. PSYCH: Normal mood, normal affect. SKIN: Warm, Dry, normal turgor, no rashes or lesions noted. TRAVEL OUTSIDE OF THE [place] IN LAST 30 DAYS: No - Related Data Allergies/Adverse Reactions: No Known Allergies Allergy (Verified 08/04/17 10:09) Past Medical History - Social History Chew tobacco use (# tins/day): No Frequency of alcohol use: None Drug Abuse: None Renal/ Medical History: Denies: Hx Peritoneal Dialysis - Immunizations Immunizations up to date: Yes Hx Diphtheria, Pertussis, Tetanus Vaccination: Yes Physical Exam - Vital signs Vitals: Temp Pulse Resp BP Pulse Ox 98.0 F 84 18 103/63 98 08/04/17 10:03 08/04/17 10:03 08/04/17 10:03 08/04/17 10:03 08/04/17 10:03 Course - Vital Signs Vital signs: Temp Pulse Resp BP Pulse Ox 98.0 F 84 18 103/63 98 08/04/17 10:03 08/04/17 10:03 08/04/17 10:03 08/04/17 10:03 08/04/17 10:03
--- NOTE | 2017-08-04 10:32 | ER Document Report ---
ED General - General Chief Complaint: Abdominal Pain Stated Complaint: VOMITING Time Seen by Provider: 08/04/17 10:14 Notes: 31-year-old [place] from [place] ([facility]) to the emergency department chief complaint of nausea, vomiting, diarrhea, abdominal cramping. Patient states that she ate at [employer] yesterday. Afterwards she began to have vomiting followed by diarrhea. Crampy diffuse abdominal pain. No blood in the stool. No blood in the vomit. Does not believe that she is . Has had significant dehydration in the past requiring multiple IV treatments. Was diagnosed with an arrhythmia and was on metoprolol but has recently stopped. TRAVEL OUTSIDE OF THE [place] IN LAST 30 DAYS: No - HPI Onset: Yesterday Onset/Duration: Gradual, Constant Quality of pain: Achy Severity: Mild Pain Level: 1 Associated symptoms: Diarrhea, Nausea, Vomiting - Related Data Allergies/Adverse Reactions: No Known Allergies Allergy (Verified 08/04/17 10:09) Past Medical History - General Information source: Patient - Social History Smoking Status: Never Smoker Cigarette use (# per day): No Chew tobacco use (# tins/day): No Frequency of alcohol use: None Drug Abuse: None Lives with: Spouse/Significant other Family History: Reviewed & Not Pertinent, Thyroid Disfunction Patient has suicidal ideation: No Patient has homicidal ideation: No Renal/ Medical History: Denies: Hx Peritoneal Dialysis - Immunizations Immunizations up to date: Yes Hx Diphtheria, Pertussis, Tetanus Vaccination: Yes Review of Systems - Review of Systems Constitutional: denies: Fever, Malaise, Weakness EENT: denies: Eye pain, Ear pain, Throat pain, Throat swelling, Mouth pain Cardiovascular: denies: Palpitations, Heart racing, Orthopnea Respiratory: denies: Cough, Hurts to breathe, Short of breath, Wheezing Gastrointestinal: Abdominal pain, Diarrhea, Nausea, Vomiting Genitourinary: denies: Dysuria, Flank pain, Urgency, Retention Female Genitourinary: denies: , Vaginal discharge, Vaginal bleeding Musculoskeletal: denies: Back pain, Gout, Joint pain Skin: denies: Dryness, Lesions, Rash Hematologic/Lymphatic: Easy bleeding, Easy bruising. denies: Anemia, Blood clots Neurological/Psychological: denies: Confusion, Weakness, Numbness Physical Exam - Vital signs Vitals: Temp Pulse Resp BP Pulse Ox 98.0 F 84 18 103/63 98 08/04/17 10:03 08/04/17 10:03 08/04/17 10:03 08/04/17 10:03 08/04/17 10:03 Interpretation: Normal - General General appearance: Appears well, Alert - HEENT Head: Normocephalic, Atraumatic Eyes: Normal Pupils: PERRL Mucous membranes: Dry - Respiratory Respiratory status: No respiratory distress Chest status: Nontender Breath sounds: Normal Chest palpation: Normal - Cardiovascular Rhythm: Regular Heart sounds: Normal auscultation Murmur: No - Abdominal Inspection: Normal Distension: No distension Bowel sounds: Hyperactive Tenderness: Nontender Organomegaly: No organomegaly - Back Back: Normal, Nontender - Extremities General upper extremity: Normal inspection, Nontender, Normal color, Normal ROM , Normal temperature General lower extremity: Normal inspection, Nontender, Normal color, Normal ROM , Normal temperature, Normal weight bearing. No: Sylvia's sign - Neurological Neuro grossly intact: Yes Cognition: Normal Orientation: AAOx4 [place] Coma Scale Eye Opening: Spontaneous [place] Coma Scale Verbal: Oriented [place] Coma Scale Motor: Obeys Commands Scar Coma Scale Total: 15 Speech: Normal Motor strength normal: LUE, RUE, LLE, RLE Sensory: Normal - Psychological Associated symptoms: Normal affect, Normal mood - Skin Skin Temperature: Warm Skin Moisture: Dry Skin Color: Normal Course - Re-evaluation Re-evalutation: 08/04/17 10:59 Well-appearing. No acute distress. Slightly dry buccal mucosa and hyperactive bowel sounds. Has received a liter of normal saline and some Zofran. Still having some mild nausea may re-dose the Zofran. Will add a second liter of D5 normal saline. Once patient feeling a little bit better will try p.o. challenge. We will get baseline labs and reassess. 08/04/17 12:49 Labs fairly unremarkable however does have some elevated glucose. In the setting of an infection this is not necessarily uncommon as well as the fact that I am giving her IV dextrose so we will just advise her to continue to observe this and get baseline labs done some other time in the future. Patient looking much better at this time. Will DC on Zofran. Advised to return for any worsening symptoms or concerns - Vital Signs Vital signs: Temp Pulse Resp BP Pulse Ox 98.0 F 84 18 108/80 98 08/04/17 10:03 08/04/17 10:03 08/04/17 10:03 08/04/17 11:28 08/04/17 10:03 - Laboratory Result Diagrams: 08/04/17 10:21 08/04/17 11:47 Laboratory results interpreted by me: 08/04/17 08/04/17 08/04/17 10:21 10:50 11:47 Seg Neutrophils % 88.6 H Lymphocytes % 6.0 L Absolute Neutrophils 8.8 H Chloride 112 H Glucose 186 H Calcium 8.2 L Alkaline Phosphatase 33 L Total Protein 5.7 L Albumin 3.1 L Urine Protein 30 H Ur Leukocyte Esterase TRACE H Discharge - Discharge Clinical Impression: Gastroenteritis Condition: Good Disposition: HOME, SELF-CARE Instructions: Antinausea Medication ([facility]), Gastroenteritis (adult) ([facility]), Intravenous (IV) Fluids ([facility]), Vomiting ([facility]) Additional Instructions: If your symptoms get worse over the next 12-24 hours especially if you develop blood in your stool, right lower quadrant pain, right upper quadrant pain or any worsening symptoms then you should return to the emergency department for repeat evaluation. Prescriptions: Ondansetron [Zofran Odt 4 mg Tablet] 1 - 2 tab PO Q4H PRN #15 tab.rapdis PRN Reason: For Nausea/Vomiting
[2017-08-04] MEDS ORDERED: DEXTROSE 5%-NORMAL SALINE 1,000 ML IV ONE (10:57)
[2017-08-04] MEDS ORDERED: ONDANSETRON 4 MG TAB.RAPDIS PO PRN (11:24)
[2017-08-04] MEDS ORDERED: FAMOTIDINE INJ/PF 20 MG/2 ML SDV IV ONE (11:24)
[2017-08-04 11:25] LABS: ABSOLUTE EOSINOPHILS # (AUTO) 0.2 10^3/uL (0.0-0.6); ABSOLUTE LYMPHOCYTES (AUTO) 0.6 10^3/uL (0.5-4.7); ABSOLUTE MONOCYTES (AUTO) 0.3 10^3/uL (0.1-1.4); ABSOLUTE NEUT (AUTO) 8.8 10^3/uL (1.7-8.2); BASOPHILS % (AUTO) 0.2 % (0-2); EOSINOPHILS % (AUTO) 1.8 % (0-6); HEMATOCRIT 42.6 % (36.0-47.0); HEMOGLOBIN 14.8 g/dL (12.0-15.5); MEAN CORPUSCULAR HEMOGLOBIN 30.2 pg (27.0-33.4); MEAN CORPUSCULAR HGB CONC 34.6 g/dL (32.0-36.0); MEAN CORPUSCULAR VOLUME 87 fl (80-97); MONOCYTES % (AUTO) 3.4 % (3-13); PLATELET COUNT 239 10^3/uL (150-450); RED BLOOD COUNT 4.89 10^6/uL (3.72-5.28); RED CELL DISTRIBUTION WIDTH 12.4 % (11.5-14.0); SEGMENTED NEUTROPHILS % (AUTO) 88.6 % (42-78); TOTAL CELLS COUNTED % (AUTO) 100 %
[2017-08-04 11:27] LABS: APPEARANCE,URINE SLIGHTLY-CLOUDY; BILIRUBIN,URINE NEGATIVE (NEGATIVE); COLOR,URINE AMBER; GLUCOSE, URINE NEGATIVE (NEGATIVE); KETONES,URINE NEGATIVE (NEGATIVE); LEUKOCYTE ESTERASE,URINE TRACE (NEGATIVE); NITRITE,URINE NEGATIVE (NEGATIVE); PROTEIN,URINE 30 mg/dL (NEGATIVE); UROBILINOGEN,URINE NEGATIVE mg/dL (<2.0)
[2017-08-04 12:38] LABS: ALANINE AMINOTRANSFERASE 36 U/L (9-52); ALBUMIN 3.1 g/dL (3.5-5.0); ALKALINE PHOSPHATASE 33 U/L (38-126); ANION GAP 7 (5-19); ASPARTATE AMINO TRANSFERASE 14 U/L (14-36); BILIRUBIN,DIRECT 0.3 mg/dL (0.0-0.4); BILIRUBIN,TOTAL 0.7 mg/dL (0.2-1.3); BLOOD UREA NITROGEN 12 mg/dL (7-20); CALCIUM 8.2 mg/dL (8.4-10.2); CARBON DIOXIDE 22 mmol/L (22-30); CHLORIDE 112 mmol/L (98-107); GLUCOSE 186 mg/dL (75-110); POTASSIUM 3.9 mmol/L (3.6-5.0); SODIUM 140.8 mmol/L (137-145); TOTAL PROTEIN 5.7 g/dL (6.3-8.2)
[2017-08-04] MEDS ORDERED: HYDROCODONE/ACETAMINOPHEN 5-325 MG TABLET PO ONE (12:52)
[2017-08-04] MEDS ORDERED: KETOROLAC TROMETHAMINE INJ/PF 30 MG/1 ML SDV IV ONE (12:52)
[2017-08-04 13:57] VITALS: BP 100/63
--- NOTE | 2017-08-04 16:18 | EKG REPORT ---
SEVERITY:- BORDERLINE ECG - SINUS RHYTHM INFERIOR Q WAVES, PROBABLY NORMAL VARIATION : Confirmed by: Ernesto Randhawa MD 04-Aug-2017 16:17:27
== END 2017-08-04 13:43 | disposition home or self-care (01) ==
LOC: ER 09:40
DX: K52.9 Noninfective gastroenteritis and colitis, unspecified (principal); R10.9 Unspecified abdominal pain
CPT/HCPCS: 93005; 99284; 96361; 96374; 96375; 36415; 87086; 85025; 81025; 80053; 81001; 93010; S0119; J1885; J2405; J7030; S0028